=== PATIENT | male | born 1995 | race Caucasian/White ===

== ENCOUNTER 2022-01-03 18:05 | Emergency (ER) | payer BC, OTHER ==
[2022-01-03 18:25] VITALS: TEMP 98.6
[2022-01-03] MEDS ORDERED: DIPH,PERTUS(ACELL)TETVAC-LF 0.5 ML VIAL IM ONE (18:38)
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
[2022-01-03 19:57] VITALS: BP 128/78; PULSE 77; RESP 18
== END 2022-01-03 19:56 | disposition home or self-care (01) ==
LOC: EC 18:05
DX: S43.401A Unspecified sprain of right shoulder joint, initial encounter (principal); L03.116 Cellulitis of left lower limb; Z23 Encounter for immunization; Z88.2 Allergy status to sulfonamides; V86.09XA Driver of other special all-terrain or other off-road motor vehicle injured in traffic accident, initial encounter
CPT/HCPCS: 90471; 90715; 99284